=== PATIENT | male | born 2000 | race Caucasian/White ===

== ENCOUNTER 2019-02-26 13:25 | Emergency (ER) | payer MEDICAID, SELFPAY ==
[2019-02-26 13:26] VITALS: BP 144/85; PULSE 94; RESP 16; TEMP 36.7; O2SAT 100; BMI 24.2
--- NOTE | 2019-02-26 13:40 | ED.VIS.GEN ---
History of Present Illness Chief Complaint: Complaint Informant: Patient Onset: Yesterday Current Severity: Mild Narrative: The patient complains of discolored concentrated looking urine since yesterday x1 or 2 no blood no pain no dysuria no penile discharge, no nausea or vomiting, he is eating and drinking well he does indicate a few days ago he picked up a quite a few logs but did not injure himself anyway, he has had no fever no cough no abdominal pain, he noted to his mother the discolored urine and she suggested he come to the emergency room to be evaluated he has no past history is on no medications Past Medical History - Allergies and Home Meds Allergies/Adverse Reactions: Allergies No Known Allergies Allergy (Verified 02/26/19 13:27) Primary Care Physician: NOT,DEFINED [NON-STAFF] - Past Medical History: None Review of Systems General: Denies: Chills, Fever, Sweats Eyes: Denies: Visual changes - bilaterally, Diplopia ENT: Denies: Rhinorrhea, Sore throat Cardiovascular: Denies: Chest pain, Palpitations Respiratory: Denies: Dyspnea, Cough, Dyspnea on exertion Gastrointestinal: Denies: Abdominal pain, Nausea, Vomiting, Diarrhea, Melena, Hematochezia Genitourinary: Reports: - - Discolored urine no other complaints. Denies: Dysuria, Hematuria, Frequency Musculoskeletal: Denies: Back pain, Extremity Pain Skin: Denies: Rash, Wounds Neurological: Denies: Headache, Weakness, Numbness Physical Exam Vital Signs/Narrative: Vital Signs Temp Pulse Resp BP Pulse Ox 02/26/19 13:26 98.0 F 94 16 144/85 H 100 General: Well nourished, Well developed, No Acute Distress Head: Normocephalic, Atraumatic Eyes: Perrl, EOMI ENT: Moist mucous membranes, No rhinorrhea Neck: Supple, Nontender Cardiovascular: Regular rate, Regular rhythm, No murmurs Respiratory: No distress, CTA bilaterally, Chest nontender Abdomen: Soft, Nontender, Nondistended, Normal bowel sounds : - - Remarkable genitalia no pain no discharge Back: Nontender, Normal Inspection Extremities: Nontender, No edema Skin: Normal color, No rash Neurological: Alert, Oriented x3, Cranial nerves II-XII grossly intact, Normal Strength, Normal Sensation Psychological: Normal affect, Normal Mood Diagnostic/Tx/Re-eval - Medical Decision Making he has no physical findings indicates no fever no cough he is eating and drinking well bowel and bladder habits are normal except he has a discolored urine he is had no trauma only thing really knew was he was called picking up these logs as he did not injure himself he has no pain or symptoms of any kind Patient's UA is negative for all, see that report clear urine, we did send as a precaution GC chlamydia chlamydia PCR urine he indicates he has no history of STD no dysuria these results are not available he will be discharged home to follow-up with outpatient providers and have these other urine tests checked by those outpatient providers, he is comfortable with this plan Stable home Final impression Discolored urine by history etiology unclear ED Disposition - Plan for ED Patient: Diagnosis: Reports of discolored urine Instructions: URETHRITIS, Male (Infec vs Inflam), Adult Referrals: NOT,DEFINED [NON-STAFF] - Cande Patel [NON-STAFF] - Additional Instructions: Your urine test was unremarkable, additional urine cultures were sent follow-up with your outpatient providers to have those checked
[2019-02-26 14:27] LABS: Bacteria 0 SEEN /hpf (None Seen); Mucous, Urine 0 SEEN /hpf (<or=2+); Red Blood Cells-Urine 0 SEEN /hpf (0-5); Squamous Epithelial Cells - UA 0 SEEN /hpf (0-5); White Blood Cells 0 SEEN /hpf (0-5)
[2019-02-26 14:28] LABS: Color, Urine Yellow (Yellow); Glucose, Dipstick Normal (Normal); Ketone-Dipstick Negative (Negative); Leukocyte Esterase-Dipstick Negative /ul (Negative); Nitrite-Dipstick Negative (Negative); Occult Blood-Urine Negative /ul (Negative); Protein-Dipstick Negative (Negative); Urine Bilirubin Dipstick Negative (Negative); Urine Clarity Clear (Clear); Urine Urobilinogen Normal (Normal)
[2019-02-26 15:14] VITALS: BP 137/86; PULSE 85; RESP 17; O2SAT 97
== END 2019-02-26 15:15 | disposition home or self-care (01) ==
LOC: ED 13:54
PROVIDERS: Emergency Provider Emergency Medicine
DX: R82.998 Other abnormal findings in urine (principal)
CPT/HCPCS: 81001; 87491; 87591; 99282

== ENCOUNTER 2019-10-27 11:32 | Emergency (ER) | payer MEDICAID, SELFPAY ==
[2019-10-27 11:32] VITALS: BP 136/90; PULSE 120; RESP 16; TEMP 36.4; O2SAT 96; BMI 24.3
--- NOTE | 2019-10-27 12:18 | ED.VIS.GEN ---
History of Present Illness Chief Complaint: Nausea/Vomiting/Diarrhea Informant: Patient Narrative: Patient presents the emergency room stating he has had approximately 3 to 4 days of diarrhea. He had an episode of vomiting this morning. He also reports a subjective fever last night. He states he took Motrin about 16 hours ago. He was afebrile here in the department. No rashes. Denies any bad food exposure. No cough no shortness of breath no runny nose no sore throat no earache. Past Medical History - Allergies and Home Meds Allergies/Adverse Reactions: Allergies No Known Allergies Allergy (Verified 10/27/19 11:35) Primary Care Physician: Care Physician,No Primary [Primary Care Provider] - Smoking Status: Unknown if ever smoked Review of Systems General: Reports: Chills, Fever, Subjective. Denies: Sweats Eyes: Denies: Visual changes - bilaterally, Diplopia ENT: Denies: Rhinorrhea, Sore throat Cardiovascular: Denies: Chest pain, Palpitations Respiratory: Denies: Dyspnea, Cough, Dyspnea on exertion Gastrointestinal: Reports: Nausea, Vomiting, Diarrhea. Denies: Abdominal pain, Melena, Hematochezia Genitourinary: Denies: Dysuria, Hematuria, Frequency Musculoskeletal: Denies: Back pain, Extremity Pain Skin: Denies: Rash, Wounds Neurological: Denies: Headache, Weakness, Numbness Physical Exam Vital Signs/Narrative: Vital Signs Temp Pulse Resp BP Pulse Ox 10/27/19 11:32 97.5 F L 120 H 16 136/90 H 96 Inital Vital Signs reviewed: Yes General: Well nourished, Well developed, No Acute Distress Head: Normocephalic, Atraumatic Eyes: Perrl, EOMI ENT: Moist mucous membranes, No rhinorrhea Neck: Supple, Nontender Cardiovascular: Regular rate, Regular rhythm, No murmurs Respiratory: No distress, CTA bilaterally, Chest nontender Abdomen: Soft, Nontender, Nondistended, Normal bowel sounds Back: Nontender, Normal Inspection Extremities: Nontender, No edema Skin: Normal color, No rash Neurological: Alert, Oriented x3, Cranial nerves II-XII grossly intact, Normal Strength, Normal Sensation Psychological: Normal affect, Normal Mood Diagnostic/Tx/Re-eval - Medical Decision Making Patient is very concerned about COVID. We can swab him for COVID given his fever and diarrhea. He will need to go to commercial lab. I will write for Zofran would recommend Imodium. ED Disposition - Plan for ED Patient: Disposition: Home or Assisted Living Diagnosis: Gastroenteritis Instructions: ED Viral Gastroenteritis Prescriptions: Ondansetron [Zofran Odt] 4 mg PO Q8H PRN PRN #10 tab PRN Reason: Nausea Prescription Printed Referrals: Coretta Yanez MD [STAFF PHYSICIAN] - (As needed for primary care) Additional Instructions: I would recommend Imodium as needed for diarrhea. Zofran for nausea vomiting. Follow-up with primary care if not improving
[2019-10-27 13:05] VITALS: PULSE 80; RESP 16; O2SAT 99
[2019-10-27 13:07] VITALS: PULSE 80; RESP 14; O2SAT 99
== END 2019-10-27 13:05 | disposition home or self-care (01) ==
LOC: ED 12:27
PROVIDERS: Emergency Provider Emergency Medicine
DX: K52.9 Noninfective gastroenteritis and colitis, unspecified (principal); Z79.899 Other long term (current) drug therapy
CPT/HCPCS: 87635; 99282; U0003

== ENCOUNTER 2021-02-26 21:30 | Emergency (ER) | payer MEDICAID, SELFPAY ==
[2021-02-26 21:33] VITALS: BP 134/90; PULSE 107; RESP 16; TEMP 36.6; O2SAT 100; BMI 15.7
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
[2021-02-26] MEDS: Diphth,Pertuss(Acell),Tet Vac 0.5 ML Vial IM (22:06)
[2021-02-26] MEDS: LORazepam 2 MG/ML Syringe IM (22:06)
[2021-02-26] MEDS: Lidocaine 1% (20 ml mdv) 20 ML Vial INFILT (22:07)
[2021-02-26 22:19] LABS: Absolute Lymphocyte Count 2.78 X10^3/uL (0.83-4.51); Absolute Neutrophil Count 7.4 X10^3/uL (2.0-7.7); Basophil% 0.9 % (0-1); Eosinophil# 0.22 X10^3/uL; Eosinophils% 1.9 % (0-5); Hematocrit 43.5 % (40-54); Hemoglobin 15.3 g/dL (13.0-16.5); Lymphocyte # 2.78 X10^3/ul (0.83-4.51); Lymphocyte % 24.3 % (19-41); Mean Corp Hgb Conc 35.2 g/dL (32-36); Mean Corpuscular Hgb 30.8 pg (27.0-32.0); Mean Corpuscular Volume 87.7 fL (80-94); Monocyte# 0.87 X10^3/uL; Monocyte% 7.6 % (0-10); NRBC Flagged by Analyzer 0 % (0-5); Neutrophil % 64.9 % (47-70); Platelet Count 229 K/mm3 (150-450); RBC Distribution Width CV 11.9 % (11.6-14.6); Red Blood Count 4.96 M/mm3 (4.6-6.2); White Blood Count 11.4 K/mm3 (4.4-11.0)
[2021-02-26 22:34] LABS: Anion Gap 5 (5-15); BUN 19 mg/dL (7-18); BUN/Creat Ratio 16.7 RATIO (10-20); Calcium,Total 9.8 mg/dL (8.5-10.1); Chloride 103 mmol/L (98-107); Creatinine, Serum 1.14 mg/dL (0.70-1.30); EST Glomerular Filtration Rate 85 mL/min (>60); Est Glom Filt Rate - Afr Amer 103 mL/min (>60); Estimated Creatinine Clearance 75.76 ml/min; Glucose 94 mg/dL (74-106); Potassium 3.9 mmol/L (3.5-5.1); Sodium Level 139 mmol/L (136-145)
[2021-02-26 22:47] LABS: Alcohol, Blood (Medical)-Serum < 3.0 mg/dL
[2021-02-26 23:57] VITALS: RESP 16
[2021-02-27] VITALS (14 sets, daily range): BP systolic 95–104; BP diastolic 50–91; PULSE 71–84; RESP 14–18; O2SAT 95–98
[2021-02-27 01:00] LABS: Amphetamine Urine VISTA POSITIVE (<1000 ng/mL); Barbiturate Urine VISTA NEGATIVE (< 200 ng/mL); Benzodiazepine Urine VISTA NEGATIVE (< 200 ng/mL); Cocaine Urine VISTA NEGATIVE (< 300 ng/mL); Ecstacy Urine VISTA POSITIVE (< 500 ng/mL); Methadone Urine VISTA NEGATIVE (< 300 ng/mL); PCP Urine VISTA NEGATIVE (< 25 ng/mL); THC Urine VISTA POSITIVE (< 50 ng/mL); Vista UDS pH Range 4
--- NOTE | 2021-02-27 07:16 | NURSING ---
CALLED [facility]. TALKED TO IGGY ANSWERING SERVICE
--- NOTE | 2021-02-27 09:07 | NURSING ---
CALLED [facility], TALKED TO SRUTHI. SHE NEEDS CHART FAXED. WILL DO THIS
--- NOTE | 2021-02-27 09:13 | NURSING ---
FAX SENT TO CRISIS
--- NOTE | 2021-02-27 09:54 | NURSING ---
[facility] HERE FOR PATIENT
--- NOTE | 2021-02-27 10:30 | CM.ED ---
SOCIAL WORK Met with Crisis. Per wafer polishing worker, Maribell attempted to meet with patient. Patient unable to complete assessment at this time. Maribell reports patient is coming off meth. This worker to follow up once patient able to participate with assessment. Nursing updated. Lelo London, THIRD STEEL POURER, ANALYTICS ARCHITECT
--- NOTE | 2021-02-27 12:54 | EKG12_ITS ---
Test Reason : MENTAL STATUS CHANGE Blood Pressure : / mmHG Vent. Rate : 068 BPM Atrial Rate : 068 BPM P-R Int : 114 ms QRS Dur : 094 ms QT Int : 398 ms P-R-T Axes : 072 077 068 degrees QTc Int : 423 ms Normal sinus rhythm with sinus arrhythmia Normal ECG Confirmed by JANAK SANCHEZ, ISHAN ([id number]), visual effects editor LAINE HENAO ([id number]) on 02/28/2021 9:23:58 AM Referred By: PHILIPPE Confirmed By:ISHAN BRICENO MD
--- NOTE | 2021-02-27 13:08 | NURSING ---
NO OLD EKGS
[2021-02-27 13:17] LABS: CPK Total, Creatine Kinase 439 U/L (39-308)
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
--- NOTE | 2021-02-27 13:34 | CM.ED ---
SOCIAL WORK Call to [facility], no intake available at this time. Call to [facility], no dual dx beds available. Call to [facility]. Intake reports beds available. Referral faxed, pending review. Lelo London, CARDIO TECH, TEST BORE HELPER
--- NOTE | 2021-02-27 15:06 | CM.ED ---
SOCIAL WORK Call to [facility] to check on status of referral. Intake reports still under review at this time. Lelo London, SOFTWARE APPLICATIONS DEVELOPER, COPY MACHINE OPERATOR
--- NOTE | 2021-02-27 17:10 | CM.ED ---
SOCIAL WORK Patient accepted to [facility] by Dr. Ricketts to the Dual Dx Unit. Nurse to call report. [facility] to set up transport. Nursing updated and will update family. Lelo London MSW, TRANSLATOR AND INTERPRETER
--- NOTE | 2021-02-27 17:27 | NURSING ---
1719 CALLED [facility], ETA IS 20 MIN
--- NOTE | 2021-02-27 17:35 | ED.RN ---
MOTHER CALLED AND LEFT HER PHONE NUMBER FOR PT. THIS RN SPOKE WITH MOTHER OVER THE PHONE AND NOTIFIED HER THAT HE WAS BEING TRANSFERRED TO [facility]. SHE VERBALIZED UNDERSTANDING. PHONE NUMBER WAS GIVEN TO ED STATE ARCHIVIST TO PUT WITH HIS CHART OR TRANSFER
--- NOTE | 2021-02-27 17:42 | ED.RN ---
[facility] CALL[facility] INFORMED THAT TRANSPORT CREW WILL BE HER AROUND 2014
--- NOTE | 2021-02-27 18:00 | ED.RN ---
Updated [facility] on ETA of squad pickup ([id number]).
== END 2021-02-27 20:30 ==
LOC: ED 22:00
PROVIDERS: Emergency Medicine; Emergency Provider Emergency Medicine
DX: F25.9 Schizoaffective disorder, unspecified (principal); F31.9 Bipolar disorder, unspecified; S01.511A Laceration without foreign body of lip, initial encounter; Z23 Encounter for immunization; Y35.811A Legal intervention involving manhandling, law enforcement official injured, initial encounter; Y93.9 Activity, unspecified; Y92.9 Unspecified place or not applicable; Y99.9 Unspecified external cause status; Z20.822 Contact with and (suspected) exposure to COVID-19; F15.10 Other stimulant abuse, uncomplicated; F17.210 Nicotine dependence, cigarettes, uncomplicated
CPT/HCPCS: 12011; 36415; 80048; 80307; 82077; 82550; 85025; 87426; 90715; 93005; 96372; 99285

== ENCOUNTER 2021-06-14 11:41 | Emergency (ER) | payer MEDICAID, SELFPAY ==
[2021-06-14 11:43] VITALS: BP 124/84; PULSE 119; RESP 18; TEMP 36.6; O2SAT 100; BMI 19.0
[2021-06-14 12:27] LABS: Absolute Lymphocyte Count 2.12 X10^3/uL (0.83-4.51); Absolute Neutrophil Count 4.7 X10^3/uL (2.0-7.7); Basophil# 0.07 X10^3/uL; Basophil% 0.9 % (0-1); Eosinophils% 3.8 % (0-5); Hematocrit 43.6 % (40-54); Hemoglobin 15.6 g/dL (13.0-16.5); Lymphocyte # 2.12 X10^3/ul (0.83-4.51); Lymphocyte % 27.1 % (19-41); Mean Corp Hgb Conc 35.8 g/dL (32-36); Mean Corpuscular Hgb 31.2 pg (27.0-32.0); Mean Corpuscular Volume 87.2 fL (80-94); Monocyte% 7.7 % (0-10); NRBC Flagged by Analyzer 0 % (0-5); Neutrophil # 4.68 X10^3/uL (2.7-7.7); Platelet Count 199 K/mm3 (150-450); RBC Distribution Width CV 11.6 % (11.6-14.6); White Blood Count 7.8 K/mm3 (4.4-11.0)
--- NOTE | 2021-06-14 12:28 | EX.ED.VIS.PS ---
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 History is still a bit difficult to obtain. He denies any medicines or history of medical problems. However, I later find out he has schizophrenia has at least 2 meds prescribed but not being taken and used to get an injectable monthly medicine to control this. He has not had any of these meds for a long time. He has had more bizarre behavior poor self-care and using drugs. It sounds like he uses mostly math. He has never injected. No indication of suicidal homicidal behavior but evidently he is living in squalid conditions is about to get evicted and has very poor self-care and has been going downhill so he is really not caring for himself. PFSH PFS Medical History Methamphetamine abuse Home Medications NK 02/26/21 [History Last Taken Unknown] NK 06/14/21 [History Last Taken Unknown] Allergy/AdvReac Type Severity Reaction Status Date / Time No Known Allergies Allergy Unverified 06/14/21 11:45 Surgical History no surgical history Social History Smoking Status: Unknown if ever smoked ROS ROS ED Constitutional Constitutional ED: Denies fever(s) Eyes Eyes: Denies change in vision ENT ENT ED: Denies rhinorrhea or sore throat Cardiovascular Cardiovascular: Denies chest pain or palpitations Respiratory/Chest Respiratory/Chest: Denies cough or dyspnea Gastrointestinal Gastrointestinal: Denies nausea or vomiting Genitourinary Genitourinary ED: Denies dysuria Musculoskeletal Musculoskeletal: Denies arthralgias or myalgias Integumentary Reports other Details: Chronic psoriasis rash Neurologic Neurologic: Denies headache(s) Psychiatric Psychiatric: Reports other Details: See history of present illness. Patient seems very distracted but denies hallucinations. ; Denies anxiety, depression, suicidal ideation or suicidal thoughts Endocrine Endocrinology: Denies polydipsia or polyuria Hematologic/Lymphatic Hematologic/Lymphatic: Denies easy bleeding or easy bruising Allergic/Immunologic Allergic/Immunologic ED: Denies mouth swelling or urticaria EXAM Physical Exam Const Vital Signs: 06/14/21 11:43 Temperature 98 F Temperature Source Temporal Pulse Rate 119 H Respiratory Rate 18 Blood Pressure 124/84 H Blood Pressure Mean 97 Pulse Ox 100 Oxygen Delivery Method Room Air Positive well nourished, well developed and unkempt General Appearance ED: unkempt, well developed and NAD HEENT normocephalic and atraumatic Eyes General Eye ED: Negative for pale conjunctiva or scleral icterus Neck no JVD Resp normal respiratory effort and clear to auscultation bilaterally Auscultation: Negative for rales, rhonchi or wheezes Cardio Rate: regular rate Rhythm: regular rhythm GI non-tender and non-distended Palpation: soft Back/Spine no CVA tenderness General Back: CVA tenderness Psych Psych Narrative: Patient is awake and alert. He is cooperative except he does seem otherwise preoccupied. I will oftentimes have to ask questions more than once before he answers. He has poor insight. Appearance: unkempt Skin Skin Narrative: Psoriatic changes on elbows. Lesions: no lesions MDM MDM MDM Narrative Medical decision making narrative: Blood work shows normal CBC, normal electrolytes, negative alcohol. Tox is positive for meth and cannabis. EKG is unremarkable. Covid is negative. Patient is medically cleared for psychiatric evaluation and admission if needed. Patient is pink slipped here. He is becoming nonfunctional. He has obvious stimulation from other source no one else recognizes. I suspect he is having hallucinations but cannot verify that. He is off of his medications. Those that know him state he is getting significantly worse. He is at risk for getting evicted shortly due to his behavior. Patient is being evaluated by social work who is working on arranging placement. Lab Data Attestation: I reviewed the patient's lab results. Labs: Laboratory Results - last 24 hr 06/14/21 06/14/21 06/14/21 12:20 12:20 12:20 WBC 7.8 RBC 5.00 Hgb 15.6 Hct 43.6 MCV 87.2 MCH 31.2 MCHC 35.8 RDW Std Deviation 37.0 RDW Coeff of Geremias 11.6 Plt Count 199 MPV 9.0 Immature Gran % (Auto) 0.500 Neut % (Auto) 60.0 Lymph % (Auto) 27.1 [place] % (Auto) 7.7 Eos % (Auto) 3.8 Baso % (Auto) 0.9 Absolute Neuts (auto) 4.7 Absolute Lymphs (auto) 2.12 Nucleated RBC % 0 Sodium 139 Potassium 3.7 Chloride 105 Carbon Dioxide 28.0 Anion Gap 6 BUN 15 Creatinine 0.80 Estim Creat Clear Calc 128.99 Est GFR (MDRD) Af Amer 154 Est GFR (MDRD) Non-Af 127 BUN/Creatinine Ratio 18.8 Glucose 87 Calcium 9.2 Urine Opiates Screen Urine Methadone Screen Ur Barbiturates Screen Ur Phencyclidine Scrn Ur Amphetamines Screen U Methamphetamin-MDMA U Benzodiazepines Scrn Urine Cocaine Screen U Cannabinoids Screen Ur Drug Screen Comment Ethyl Alcohol < 3.0 06/14/21 12:37 WBC RBC Hgb Hct MCV MCH MCHC RDW Std Deviation RDW Coeff of Geremias Plt Count MPV Immature Gran % (Auto) Neut % (Auto) Lymph % (Auto) [place] % (Auto) Eos % (Auto) Baso % (Auto) Absolute Neuts (auto) Absolute Lymphs (auto) Nucleated RBC % Sodium Potassium Chloride Carbon Dioxide Anion Gap BUN Creatinine Estim Creat Clear Calc Est GFR (MDRD) Af Amer Est GFR (MDRD) Non-Af BUN/Creatinine Ratio Glucose Calcium Urine Opiates Screen NEGATIVE Urine Methadone Screen NEGATIVE Ur Barbiturates Screen NEGATIVE Ur Phencyclidine Scrn NEGATIVE Ur Amphetamines Screen POSITIVE H U Methamphetamin-MDMA NEGATIVE U Benzodiazepines Scrn NEGATIVE Urine Cocaine Screen NEGATIVE U Cannabinoids Screen POSITIVE H Ur Drug Screen Comment Ethyl Alcohol EKG Initial EKG: Comments: EKG done as part of medical clearance and read by me shows a sinus rhythm with overall rate of 97. Slight right atrial enlargement. No acute ST elevation or depression. [place] interval, QRS duration and QTc normal. Discharge Plan Triage Chief Complaint: Mental Health ED Provider: Scot Valencia Dx/Rx/DC Orders Clinical Impression: Acute exacerbation of chronic schizophrenia Prescriptions: No Action NK RF: 0 NK RF: 0 Primary Care Provider: Care Physician,No Primary Referrals: Care Physician,No Primary [Primary Care Provider] - Disposition Disposition: Psychiatric Hospital or Unit
[2021-06-14 12:39] LABS: Anion Gap 6 (5-15); BUN 15 mg/dL (7-18); BUN/Creat Ratio 18.8 RATIO (10-20); Calcium,Total 9.2 mg/dL (8.5-10.1); Chloride 105 mmol/L (98-107); EST Glomerular Filtration Rate 127 mL/min (>60); Est Glom Filt Rate - Afr Amer 154 mL/min (>60); Estimated Creatinine Clearance 128.99 ml/min; Glucose 87 mg/dL (74-106); Potassium 3.7 mmol/L (3.5-5.1); Sodium Level 139 mmol/L (136-145)
[2021-06-14 13:12] LABS: Alcohol, Blood (Medical)-Serum < 3.0 mg/dL
[2021-06-14 13:15] LABS: Amphetamine Urine VISTA POSITIVE (<1000 ng/mL); Barbiturate Urine VISTA NEGATIVE (< 200 ng/mL); Benzodiazepine Urine VISTA NEGATIVE (< 200 ng/mL); Cocaine Urine VISTA NEGATIVE (< 300 ng/mL); Ecstacy Urine VISTA NEGATIVE (< 500 ng/mL); Methadone Urine VISTA NEGATIVE (< 300 ng/mL); PCP Urine VISTA NEGATIVE (< 25 ng/mL); THC Urine VISTA POSITIVE (< 50 ng/mL); Vista UDS pH Range 6
--- NOTE | 2021-06-14 13:24 | CM.ED ---
Social Work Reason for Consult: Mental Health Referral source: Dr. Valencia Chief Complaint: Patient present to the emergency room with bizarre behavior. Patient friend, Maria Dolores with patient and expressing concerns of patient being able to care for self. Marital/Social History: Single. Living Situation: Lives in a motel room that is unkept per Maria Dolores. Maria Dolores reports that patient lives with a brother and patient mother. Patient mother is currently in half-way for the past 24 days per patient. Support/Resources: Active with the counseling center of [facility] but has not been following up with treatment/care. Patient reports limited community support. History: Denies Education/Employment History: Did not assess Mental Health treatment/History: Schizophrenia and Bi-polar. Patient denies any current medication to manage mental health. Patient reports it has been a minute since patient last took medication to manage mental health. Patient with history of inpatient psychiatric placement in 2020. Triggers/Stressors: Just not doing great per patient. Coping Skills: Unable to assess. Abuse Issues: Denies Substance Abuse Hx: Reports history of Marijuana use with last use being three days. Patient denies any other substance abuse/use. Patient tox screen is positive for amphetamines. Risk to self/others: Patient denies suicidal thoughts, plans, intents. Patient denies homicidal thoughts, plans, intents. Patient denies self harming behaviors or violence against others. Patient denies any current legal issues. Mental status exam: A&Ox3, at times. Throughout assessment patient would begin to speak to as if there was someone else in the room patient was speaking to. Appearance/General Behavior: Unkept. Unclean. Mood/Affect: Labile. Patient crying when this sr. social media & mobile manager entered the room. Patient would then smile in a bizarre manner and speak to what appears to be an external stimulation. Communication Pattern: Responds to majority of questions when not externally stimulated. When patient is externally stimulated, patient does not respond to questions. Thought Process: Patient denies visual or auditory hallucinations or paranoia, BUT patient is visibly externally stimulated multiple times throughout conversation patient would begin mumbling and appear to be speaking with someone that is not in the room. Judgement: Poor. Assessment: Met with patient and patient friend, Maria Dolores in room. Introduced self and sr. social media & mobile manager role. At first, patient was reluctant to speak with this sr. social media & mobile manager. With guidance from Maria Dolores patient willing to speak with this sr. social media & mobile manager. Patient provided verbal permission for this sr. social media & mobile manager to speak openly with Maria Dolores in the room. Patient also provided verbal permission for this sr. social media & mobile manager to contact Maria Dolores with updated on plan from emergency room. Patient difficult to understand at times throughout assessment. Maria Dolores reports that patient has not been caring for self and has been having episodes. Maria Dolores reports to be concerned for patient ability to care for self. Patient does appear in a bizarre manner at time and labile mood/affect. Patient smiling and laughing at inappropriate times and does not respond with appropriate affect to match the topic or the question that is being asked. Maria Dolores reports that patient was found standing against a heating the other day and patient sweatshirt started to melt before someone else identified that patient needed to move away from the heater. Patient has not been eating per patient, I just don't think about it. Patient reports to not be sleeping and is unable to identify a reason for why patient is not sleeping. Patient was reported to have lost his wallet per Maria Dolores and to have had money last night. Maria Dolores concerned about possible substance influence today but also reports that patient has not been doing well over the past few days. Active support provided. Collaborating with Dr. Valencia, plan is for patient to be pink slipped due to not being able to care for self and serving a risk to harming self as patient mental health is not stable currently. Patient responding to external stimulation with bizarre behavior. PLAN: Inpatient psychiatric facility. Will continue to follow. Jess GASPAR, JUN
--- NOTE | 2021-06-14 13:36 | ED.RN ---
PT BECAME AGITATED WHEN FRIEND STAS LEFT, STATING HE WANTS TO LEAVE WELL. PT PLACED IN GOWN, ALL CLOTHING REMOVED FROM ROOM. PT REDIRECTED BACK TO BED, FOOD ORDERED FROM DIETARY. PT RESTING IN BED AT THIS TIME, APPEARS TO BE MUMBLING NON-SENSICAL SPEECH.
--- NOTE | 2021-06-14 13:49 | EKG12_ITS ---
Test Reason : MENTAL HEALTH Blood Pressure : / mmHG Vent. Rate : 097 BPM Atrial Rate : 097 BPM P-R Int : 136 ms QRS Dur : 098 ms QT Int : 350 ms P-R-T Axes : 073 073 067 degrees QTc Int : 444 ms Normal sinus rhythm Right atrial enlargement Borderline ECG Confirmed by DELORES SANCHEZ, WENDY ([id number]), commissioning editor LAINE HENAO ([id number]) on 06/15/2021 11:21:52 AM Referred By: PL Confirmed By:DEJON ESTRELLA MD
--- NOTE | 2021-06-14 13:59 | CM.ED ---
Social Work Telephone call to [facility], Intake. This social and human services assistant confirms that [facility] accepts patient insurance and patients positive for meth. Intake also confirms to have an open male bed. Clinical information faxed. Pending approval. Will continue to follow. Jess GASPAR, JUN
--- NOTE | 2021-06-14 14:40 | ED.RN ---
PT RESTING IN BED WITH EYES CLOSED, REFUSES TO EAT.
--- NOTE | 2021-06-14 15:08 | CM.ED ---
Social Work Telephone call to [facility], Intake. No answer. No voicemail. Will continue to follow. Jess GASPAR, SUDHAS
--- NOTE | 2021-06-14 15:39 | CM.ED ---
Social Work Telephone call to Cheryl [facility]. Referral has been received and is waiting to be reviewed. Will continue to follow. Jess GASPAR, JUN
--- NOTE | 2021-06-14 16:28 | CM.ED ---
Social Work Telephone call to Cheryl Claudio. Referral is currently being reviewed. it is a potential. Will continue to follow. Jess GASPAR, JUN
[2021-06-14 17:00] VITALS: PULSE 80; RESP 14; O2SAT 100
--- NOTE | 2021-06-14 17:37 | CM.ED ---
Social Work Telephone call to [facility]. Referral made. This social media director confirmed open beds and that [facility] accepts patient insurance. Referral made to [facility] due to delayed response from [place] [facility]. Patient case currently pending [facility] and [place] [facility]. Will continue to follow. Jess GASPAR, JUN
--- NOTE | 2021-06-14 18:27 | CM.ED ---
Social Work Telephone call to Anoop Rousseau. Patient has been accepted. Anoop request for [employer] slip to be faxed and then will call back with accepting information. [employer] Sl[employer] faxed. Jess Craig MSW, Padmaja
--- NOTE | 2021-06-14 18:42 | CM.ED ---
Social Work Attempted to contact [facility] to cancel referral, no answer from admissions. Jess Craig MSW, NICKIE-S
--- NOTE | 2021-06-14 19:41 | CM.ED ---
Social Work Telephone call from Anoop Rousseau. Patient to be admitted to the 1500 unit. Nursing to call report to [phone]. Patient admitted by Dr. Hoang. Medical team updated. Patient currently sleeping, nursing to update patient. Telephone call to Maria Dolores Whitten updated on patient disposition. Transportation to be set up by the police department secretary. PLAN: Boni GASPAR, NICKIE-S
[2021-06-14 20:22] VITALS: BP 126/80; PULSE 80; RESP 16; TEMP 36.9; O2SAT 100
[2021-06-14 20:24] VITALS: BP 126/80; PULSE 80; RESP 16; TEMP 36.9; O2SAT 100
== END 2021-06-14 20:54 ==
PROVIDERS: Emergency Medicine; Emergency Provider Emergency Medicine; Visit Provider Emergency Medicine
DX: F20.9 Schizophrenia, unspecified (principal); Z20.822 Contact with and (suspected) exposure to COVID-19
CPT/HCPCS: 80048; 80307; 82077; 85025; 87426; 93005; 99285

== ENCOUNTER 2022-08-27 13:56 | Emergency (ER) | payer MEDICAID, SELFPAY ==
[2022-08-27 13:57] VITALS: BP 129/69; PULSE 141; RESP 26; TEMP 36.3; O2SAT 97; BMI 22.4
--- NOTE | 2022-08-27 14:10 | EDS_ITS ---
HPI <Dr. Paolo Nguyen MD - Last Filed: 09/03/22 13:50> HPI - Psych History of Present Illness Chief Complaint: Mental Health Detail of Chief Complaint: Patient has not taken his psychotic meds for past 4 days. Onset/Context/Timing Onset: Days Context: Sudden Onset Conflict: - (Incarcerated for probation violation) Timing: Continuous and Waxes and wanes Current Severity: Mild Maximum Severity: Moderate Worsened by: - (Unable to determine) Relieved by: Nothing Associated Symptoms Associated Symptoms - Psych: Positive for Change in Eating, Change in sleeping and Easily distracted; Negative for Depressed, Decreased Interest, Guilt, Decreased Concentration, Hopelessness, Suicidal Thoughts, Grandiosity, Flight of Ideas, Increased activity, Pressured Speech, Agitated, Angry, Hostile, Threatening, Confusion, Paranoia or Auditory Hallucinations Specific plan (suicidal thought): Not applicable Narrative Narrative: Patient is a 22-year-old male with history of schizoaffective disorder who is released from senior care. He is on no meds. He is presently homeless. He was brought to the emergency department by a friend because of abnormal behavior, lack of sleep. He does admit to schizoaffective disorder. He denies suicidal homicidal ideation. Patient is easily distracted. At times is inappropriate. Patient has no complaints. Friend who accompanied him to the emerged part is happened once before. He got better when she was started on his meds. Prior similar symptoms: Yes Recent Illness/Hospitalization: No PFSH <Dr. Paolo Nguyen MD - Last Filed: 09/03/22 13:50> PFSH Medical History Bipolar 1 disorder Methamphetamine abuse Schizo-affective schizophrenia Home Medications aripiprazole 10 mg tablet (Abilify) 10 mg PO QHS #30 tabs 08/27/22 [Rx Last Taken Unknown] risperidone 0.5 mg tablet 0.5 mg PO BID #60 tabs 08/27/22 [Rx Last Taken Unknown] trazodone 50 mg tablet 50 mg PO QHS #30 tabs 08/27/22 [Rx Last Taken Unknown] Allergy/AdvReac Type Severity Reaction Status Date / Time No Known Allergies Allergy Unverified 08/27/22 14:01 Surgical History no surgical history no surgical history Social History (Updated 08/27/22 @ 14:[address] Paolo Nguyen MD) household members: none housing: homeless Smoking Status: Current every day smoker substance use type: marijuana ROS <Dr. Paolo Nguyen MD - Last Filed: 09/03/22 13:50> ROS ED Constitutional Constitutional ED: Denies chills, fever(s), subjective, sweats or weight loss Eyes Eyes: Denies blurry vision or change in vision ENT ENT ED: Denies ear pain, rhinorrhea or sore throat Cardiovascular Cardiovascular: Denies chest pain or palpitations Respiratory/Chest Respiratory/Chest: Denies cough, dyspnea or dyspnea on exertion Gastrointestinal Gastrointestinal: Denies constipation, nausea or vomiting Integumentary Denies rash Neurologic Neurologic: Denies headache(s) or paresthesias Psychiatric Psychiatric: Denies anxiety, depression, suicidal ideation or suicidal thoughts Hematologic/Lymphatic Hematologic/Lymphatic: Denies easy bleeding or easy bruising EXAM <Dr. Paolo Nguyen MD - Last Filed: 09/03/22 13:50> Physical Exam Const Vital Signs: 08/27/22 13:57 08/27/22 15:39 Temperature 97.3 F L Temperature Source Temporal Pulse Rate 141 H 98 Respiratory Rate 26 H Blood Pressure 129/69 H Blood Pressure Mean 89 Pulse Ox 97 Oxygen Delivery Method Room Air Positive well nourished and well developed Constitutional Narrative: Patient is somewhat inappropriate at times towards his friend who is trying to be helpful. General Appearance ED: well developed and NAD; Negative for pallor HEENT HEENT Narrative: Ears normal. Mucosa moist. normocephalic and atraumatic Eyes PERRL and EOMs intact bilaterally General Eye ED: Negative for pale conjunctiva or scleral icterus Neck no lymphadenopathy, supple and no JVD Resp normal respiratory effort and clear to auscultation bilaterally Cardio S1 normal heart sound, S2 normal heart sound and no murmurs Rate: regular rate Rhythm: regular rhythm Extremity normal to inspection Extremity Narrative: There is no cyanosis or clubbing. General Extremety ED: Negative for edema or tenderness General Extremity: Negative for edema Neuro oriented x3, CN's II-XII intact bilaterally and no sensory deficits noted [place] Coma Scale: document GCS findings Spontaneous Obeys Commands Oriented 15 Sensorium / Orientation: alert Psych cooperative, denies hallucinations, denies homicidal ideation and denies suicidal ideation Appearance: grossly normal Attitude: engaged and bizarre Activity / Motor Behavior: appropriate eye contact, fidgetting and disorganized Speech: normal speech Mood & Affect: labile affect; Negative for sad, tearful, fearful, hostile affect, constricted affect or blunted affect Thought Process: disorganized Thought Content: No suicidality, No homicidality, No phobia(s), No delusion(s), No hallucination(s), No derealization, No depersonalization and No compulsion(s) Attention / Concentration: attention grossly intact and concentration grossly intact Insight: fair Judgement: fair Skin Skin Narrative: No dermatologic lesions noted. General Skin Exam: Negative for jaundice or pallor Lesions: no lesions Rashes: no rashes <Jimmy Llamas MD - Last Filed: 08/28/22 07:09> Physical Exam Const Vital Signs: 08/27/22 13:57 08/27/22 15:39 Temperature 97.3 F L Temperature Source Temporal Pulse Rate 141 H 98 Respiratory Rate 26 H Blood Pressure 129/69 H Blood Pressure Mean 89 Pulse Ox 97 Oxygen Delivery Method Room Air Neuro [place] Coma Scale: document GCS findings 15 MDM <Dr. Paolo Nguyen MD - Last Filed: 09/03/22 13:50> [facility] Narrative Medical decision making narrative: Placed on monitor determine patient's heart rate and rhythm. Patient will receive dose of Abilify, was very drowsy and trazodone. Monitor reveals a heart rate of 119. Friend informed me that he smoked methamphetamine. This would explain his tachycardia and contribute to his bizarre behavior. Will treat with Valium. Rhythm Strip Rhythm Strip: Sinus Tach Rate: 119 Ectopy: None <Jimmy Llamas MD - Last Filed: 08/28/22 07:09> [facility] Treatment and Re-Evaluation Narrative: Dr. Llamas: Chart opened on error. I did not see or evaluate this patient. Discharge Plan Triage Chief Complaint: Mental Health ED Provider: Paolo Nguyen Dx/Rx/DC Orders Clinical Impression: Schizoaffective disorder, chronic condition, Methamphetamine abuse, Sinus tachycardia, Psychosis Instructions: ED Psychosis Prescriptions: New trazodone 50 mg tablet 50 mg PO QHS Qty: 30 0RF risperidone 0.5 mg tablet 0.5 mg PO BID Qty: 60 0RF aripiprazole [Abilify] 10 mg tablet 10 mg PO QHS Qty: 30 0RF Primary Care Provider: Care Physician,No Primary Referrals: Counseling,Center [Group of Physicians] - As soon as possible Care Physician,No Primary [Primary Care Provider] - [facility] [Non-Staff] - As soon as possible Disposition Disposition: Home, Self Care Discharge Date/Time: 08/27/22 17:12
[2022-08-27] MEDS: traZODone 50 MG Tablet PO (14:20)
[2022-08-27] MEDS: RisperiDONE 0.5 MG Tablet PO (14:20)
[2022-08-27] MEDS: ARIPiprazole 10 MG Tablet PO (14:20)
[2022-08-27] MEDS: diazePAM 5 MG Tablet PO (14:45)
[2022-08-27 15:39] VITALS: PULSE 98
--- NOTE | 2022-08-27 17:08 | CM.ED ---
Social Work Reason for referral: Homelessness SW spoke with nurse and physician which reported concerns of homelessness, being off psychiatric medication, and substance abuse. SW attempted to engage patient but he was sleeping. Pt woke up, and mumbled and then went back to sleep. Friend, Maria Dolores Amberly, present in room and provided information on patient status. Friend reports pt had not slept in several days since being released from intermediate and reportedly used meth yesterday. Friend reports pt is homeless but does have disability income and she has been trying to help him find housing. Pt has been staying with her until her children return on Saturday. Friend reports pt was working with someone at the intermediate named Eduardo. She reports that he has an appt. at the Counseling center Saturday the at 2pm and asked if Eduardo could meet with pt at this appt. Friend reports he struggles primarily with mental illness but drugs are to self-medicate. Resources given for homelessness/housing, counseling, and substance use treatment. VM left for Eduardo Leyva at the [facility] with Maria Dolores's phone number due to patient being without a phone. Pam Rolle BOX SORTER, CLOCK MAKER
== END 2022-08-27 17:12 | disposition home or self-care (01) ==
PROVIDERS: Emergency Provider Emergency Medicine; Visit Provider Emergency Medicine
DX: F25.9 Schizoaffective disorder, unspecified (principal); F15.10 Other stimulant abuse, uncomplicated; F17.200 Nicotine dependence, unspecified, uncomplicated; Z59.00 Homelessness unspecified; Z91.148 Patient's other noncompliance with medication regimen for other reason
CPT/HCPCS: 99284

== ENCOUNTER 2023-02-06 19:42 | Emergency (ER) | payer MEDICAID, SELFPAY ==
[2023-02-06 19:43] VITALS: BP 140/78; PULSE 115; RESP 24; TEMP 37; O2SAT 96; BMI 20.4
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
--- NOTE | 2023-02-06 20:08 | ED.RN ---
DR LINDSEY PINK SLIPPING PATIENT. PT DENIES BEING SI, NO SITTER NEEDED PER DR LINDSEY. PT IS A FLIGHT RISK, PATIENT IN ROOM 4 WITH CAMERA ON AND PD STANDING OUTSIDE THE ROOM AT THIS TIME.
[2023-02-06 20:12] LABS: Absolute Lymphocyte Count 2.63 X10^3/uL (0.83-4.51); Absolute Neutrophil Count 5.4 X10^3/uL (2.0-7.7); Basophil# 0.12 X10^3/uL; Basophil% 1.3 % (0-1); Eosinophil# 0.09 X10^3/uL; Hemoglobin 14.7 g/dL (13.0-16.5); Lymphocyte # 2.63 X10^3/ul (0.83-4.51); Lymphocyte % 29.6 % (19-41); Mean Corpuscular Hgb 30.9 pg (27.0-32.0); Mean Corpuscular Volume 88.4 fL (80-94); Mean Platelet Vol. 9.4 fl (6.2-12.0); Monocyte# 0.65 X10^3/uL; Monocyte% 7.3 % (0-10); NRBC Flagged by Analyzer 0 % (0-5); Neutrophil # 5.39 X10^3/uL (2.7-7.7); Neutrophil % 60.6 % (47-70); Platelet Count 241 K/mm3 (150-450); RBC Distribution Width CV 11.5 % (11.6-14.6); RBC Distribution Width SD 36.8 fl (35.1-43.9); Red Blood Count 4.75 M/mm3 (4.6-6.2); White Blood Count 8.9 K/mm3 (4.4-11.0)
[2023-02-06 20:36] LABS: Alcohol, Blood (Medical)-Serum < 3.0 mg/dL
[2023-02-06 20:37] LABS: Anion Gap 8 (5-15); BUN 21 mg/dL (7-18); BUN/Creat Ratio 21.1 RATIO (10-20); Calcium,Total 9.3 mg/dL (8.5-10.1); Chloride 106 mmol/L (98-107); EST Glomerular Filtration Rate 98 mL/min (>60); Est Glom Filt Rate - Afr Amer 118 mL/min (>60); Estimated Creatinine Clearance 109.88 ml/min; Glucose 88 mg/dL (74-106); Potassium 3.7 mmol/L (3.5-5.1); Sodium Level 138 mmol/L (136-145)
[2023-02-06 20:58] LABS: Amphetamine Urine VISTA POSITIVE (<1000 ng/mL); Barbiturate Urine VISTA NEGATIVE (< 200 ng/mL); Benzodiazepine Urine VISTA NEGATIVE (< 200 ng/mL); Cocaine Urine VISTA NEGATIVE (< 300 ng/mL); Ecstacy Urine VISTA POSITIVE (< 500 ng/mL); Methadone Urine VISTA NEGATIVE (< 300 ng/mL); PCP Urine VISTA NEGATIVE (< 25 ng/mL); THC Urine VISTA POSITIVE (< 50 ng/mL); Vista UDS pH Range 5
--- NOTE | 2023-02-06 21:09 | ED.RN ---
CRISIS CALLED AND AWARE PT NEEDS ASSESSED. ECHART, LAB/UA RESULTS, FACESHEET FAXED OVER.
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
[2023-02-06] MEDS: Ziprasidone IM 20 MG/ML VIAL IM (22:17)
--- NOTE | 2023-02-06 23:02 | ED.RN ---
CRISIS CAME TO ASSESS, SW SAID TO CONTACT CC AFTER MIDNIGHT TO BE EVALUATED BY DIFFERENT SW.
--- NOTE | 2023-02-06 23:03 | ED.RN ---
Crisis arrives to ED. He states he cannot assess patient because he is medicated. He states we need to call crisis when patient wakes up.
[2023-02-07] VITALS (10 sets, daily range): BP systolic 105; BP diastolic 50; PULSE 75; RESP 14–24; O2SAT 98
--- NOTE | 2023-02-07 04:54 | ED.RN ---
Lakia with crisis called, pt pending at [facility].
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
--- NOTE | 2023-02-07 09:41 | NURSING ---
[facility] UN[address] DYKES NURSE TO NURSE: [phone]
[2023-02-07] MEDS: Ziprasidone IM 20 MG/ML VIAL IM (09:43)
== END 2023-02-07 13:57 ==
PROVIDERS: Emergency Provider Emergency Medicine; Visit Provider Emergency Medicine
DX: F29 Unspecified psychosis not due to a substance or known physiological condition (principal); F20.9 Schizophrenia, unspecified; Z59.00 Homelessness unspecified; R45.1 Restlessness and agitation; F17.210 Nicotine dependence, cigarettes, uncomplicated; Z78.1 Physical restraint status; Z79.899 Other long term (current) drug therapy
CPT/HCPCS: 80048; 80307; 82077; 85025; 87811; 96372; 99285; J3486

== ENCOUNTER 2023-05-29 12:44 | Emergency (ER) | payer MEDICAID, SELFPAY ==
[2023-05-29 12:44] VITALS: BP 162/106; PULSE 82; RESP 18; TEMP 36.2; O2SAT 100; BMI 20.9
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
--- NOTE | 2023-05-29 13:51 | ED.RN ---
PT REQUESTING TO LEAVE HOSPITAL TO SMOKE. RN HAS EXPLAINED TO PT HE CANNOT LEAVE AND THERE IS NO USE OF TOBACCO PRODUCTS ON HOSPITAL PROPERTY. MANJIT MARIN AND KYLIE CHARGE NURSE NOTIFIED
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
[2023-05-29 14:14] LABS: Absolute Lymphocyte Count 1.66 X10^3/uL (0.83-4.51); Absolute Neutrophil Count 4.6 X10^3/uL (2.0-7.7); Basophil# 0.07 X10^3/uL; Eosinophil# 0.18 X10^3/uL; Eosinophils% 2.5 % (0-5); Hematocrit 47.1 % (40-54); Hemoglobin 16.3 g/dL (13.0-16.5); Lymphocyte # 1.66 X10^3/ul (0.83-4.51); Lymphocyte % 23.4 % (19-41); Mean Corp Hgb Conc 34.6 g/dL (32-36); Mean Corpuscular Hgb 30.5 pg (27.0-32.0); Mean Platelet Vol. 9.3 fl (6.2-12.0); Monocyte% 7.1 % (0-10); NRBC Flagged by Analyzer 0 % (0-5); Neutrophil # 4.64 X10^3/uL (2.7-7.7); Neutrophil % 65.6 % (47-70); Platelet Count 220 K/mm3 (150-450); RBC Distribution Width CV 11.6 % (11.6-14.6); RBC Distribution Width SD 37.2 fl (35.1-43.9); Red Blood Count 5.35 M/mm3 (4.6-6.2); White Blood Count 7.1 K/mm3 (4.4-11.0)
[2023-05-29 14:28] LABS: Anion Gap 3 (5-15); BUN 10 mg/dL (7-18); BUN/Creat Ratio 10.5 RATIO (10-20); Calcium,Total 9.5 mg/dL (8.5-10.1); Chloride 106 mmol/L (98-107); Creatinine, Serum 0.95 mg/dL (0.70-1.30); EST Glomerular Filtration Rate 103 mL/min (>60); Est Glom Filt Rate - Afr Amer 125 mL/min (>60); Estimated Creatinine Clearance 118.21 ml/min; Glucose 99 mg/dL (74-106); Potassium 3.9 mmol/L (3.5-5.1); Sodium Level 139 mmol/L (136-145)
[2023-05-29 15:05] LABS: Acetaminophen (Tylenol) Level < 2.0 ug/mL (10.0-30.0); Alcohol, Blood (Medical)-Serum < 3.0 mg/dL; Salicylate < 1.7 mg/dL (2.8-20.0)
--- OUTSIDE RECORDS SUMMARY | 2023-05-29 15:37 | XMS RPT_ITS | CCD ---
Author Name Unknown Address [address] [place] [address] Organization [facility] Care Team Providers Care Survey Crew Chief Name Role Phone BRUNILDA TOMPKINS Unavailable Unavailable BRUNILDA TOMPKINS Unavailable Unavailable MONICA PHOENIX Unavailable Unavailable PHYSICIAN, NONE Primary Care Unavailable CLIFTON GRANGER Attending Unavailable [facility] Referring Ignacio lang Unavailable Primary Care Provider UnavailOral Liu Unavailable Anastasiia Pedroza Unavailable Destinee Mendosa Unavailable David Gonzalez Unavailable IHEONUNEHAYLEY CHIZITE Admitting Unavailable IHEONDEMETRIOU CHIZITE Attending Unavailable IHMELISSA QUEZADAZITE Primary Care Unavailable NO, DOCTOR ON Consulting Unavailable Medications Completed/Discontinued Medications Medication Drug Class(es) Dates Sig (Normalized) Sig (Original) ARIPiprazole 10 mg oral tablet (20 sources) Atypical Antipsychotic Start: 09-07-2021 End: 12-26-2021 Problems Active Problems Problem Classification Problem Date Documented Date Episodic/Chronic Schizophrenia and other psychotic disorders (20 sources) Schizophrenia; Translations: [Schizophrenia, unspecified] Onset: 08-21-2021 Chronic Substance-related disorders (1 source) Methamphetamine abuse; Translations: [Other stimulant abuse, uncomplicated] Chronic Past or Other Problems Problem Classification Problem Date Documented Da te Episodic/Chronic Unclassified (1 source) Encounter for other general examination / Z00.8(ICD-10) Onset: 03-12-2018 Results Test Name Value Interpretation Reference Range Facil ity Vital Signs Date Time Vital Sign Value Performing Clinician Facility 10-11-2021 13:02-0400 Body height 182.88 cm Oral Shin [facility] 10-11-2021 13:02-0400 Body mass index (BMI) [Ratio] 21.16 kg/m2 [facility] 10-11-2021 13:02-0400 Body weight 70.76 kg Oral [facility] 10-11-2021 13:02-0400 Diastolic blood pressure 82 mm[Hg] [facility] 10-11-2021 13:02-0400 Heart rate 84 /min Oral Aleida [facility] 10-11-2021 13:02-0400 Systolic blood pressure 131 mm[Hg] Oral Aleida [facility] 09-27-2021 16:50-0400 Body height 182.88 cm Oral Aleida [facility] 09-27-2021 16:50-0400 Body mass index (BMI) [Ratio] 21.16 kg/m2 Oral Aleida [facility] 09-27-2021 16:50-0400 Body weight 70.76 kg Oral Aleida [facility] 09-27-2021 16:03-0400 Body height 182.88 cm Oral Aleida [facility] 09-27-2021 16:03-0400 Body mass index (BMI) [Ratio] 21.16 kg/m2 Oral Aleida [facility] 09-27-2021 16:03-0400 Body weight 70.76 kg Oral Aleida [facility] 09-27-2021 16:03-0400 Diastolic blood pressure 57 mm[Hg] Oral Aleida [facility] 09-27-2021 16:03-0400 Heart rate 79 /min [facility]-27-2021 16:03-0400 Systolic blood pressure 99 mm[Hg] [facility] 09-07-2021 09:46-0400 Body height 182.88 cm Oral Aleida [facility] 09-07-2021 09:46-0400 Body mass index (BMI) [Ratio] 22.38 kg/m2 [facility] 09-07-2021 09:46-0400 Body weight 74.84 kg [facility] 09-07-2021 09:30-0400 Body height 182.88 cm Oral Aleida [facility] 09-07-2021 09:30-0400 Body mass index (BMI) [Ratio] 22.38 kg/m2 Oral Aleida [facility] 09-07-2021 09:30-0400 Body weight 74.84 kg Oral [facility] 09-07-2021 09:30-0400 Diastolic blood pressure 74 mm[Hg] Oral Aleida [facility] 09-07-2021 09:30-0400 Heart rate 57 /min Oral [facility]ida [facility] 09-07-2021 09:30-0400 Systolic blood pressure 114 mm[Hg] [facility] 09-05-2021 15:37-0400 Body height 182.88 cm Oral Aleida [facility] 09-05-2021 15:37-0400 Body mass index (BMI) [Ratio] 21.77 kg/m2 Oral Shin [facility] 09-05-2021 15:37-0400 Body weight 72.8 kg Oral Shin [facility] 09-05-2021 15:37-0400 Diastolic blood pressure 76 mm[Hg] Oral Shin [facility] 09-05-2021 15:37-0400 Heart rate 70 /min Oral Sihn [facility] 09-05-2021 15:37-0400 Systolic blood pressure 126 mm[Hg] Oral Shin [facility] 07-13-2021 15:39-0500 Diastolic blood pressure 76 mm[Hg] Stan Waters MD Work Phone: [facility] 07-13-2021 15:39-0500 Heart rate 82 /min Stan Waters MD Work Phone: [facility] 07-13-2021 15:39-0500 Respiratory rate 16 /min Stan Waters MD Work Phone: [facility] 07-13-2021 15:39-0500 SaO2% (BldA) [Mass fraction] 97 % Stan Waters MD Work Phone: [facility] 07-13-2021 15:39-0500 Systolic blood pressure 128 mm[Hg] Stan Waters MD Work Phone: [facility] 07-13-2021 10:43-0500 Body temperature 98.2 [degF] Stan Waters MD Work Phone: [facility] 07-12-2021 20:48-0500 Body height 182.9 cm Stan Waters MD Work Phone: [facility] 07-12-2021 20:48-0500 Body mass index (BMI) [Ratio] 20.89 kg/m2 Stan Waters MD Work Phone: [facility] 07-12-2021 20:48-0500 Body weight 69.85 kg Stan Waters MD Work Phone: [facility] Encounters Encounter Date Encounter Type Care Provider Facility Start: 11-26-2021 End: 11-26-2021 Emergency department patient visit BA TONGEONUNEKWU [facility] Start: 09-27-2021 Office outpatient vi sit 25 minutes Oral Aleida [facility] [address] Start: 09-07-2021 Office outpatient vi sit 25 minutes Oral Aleida [facility] [address] Start: 07-12-2021 End: 07-13-2021 Emergency department patient visit Stan Waters MD Work Phone: [facility] Emergency Dept Procedures Date Procedure Procedure Detail Performing Clinician Start: 01-22-2022 Ther behav svc, per 15 min Oral Aleida Start: 01-11-2022 Ther behav svc, per 15 min Oral Aelida Start: 12-18-2021 Ther behav svc, per 15 min Oral Aleida Start: 12-15-2021 Ther behav svc, per 15 min Oral Aleida Start: 11-29-2021 Ther behav svc, per 15 min Oral Aleida Start: 11-28-2021 Ther behav svc, per 15 min Oral Aleida Start: 11-26-2021 Urinalysis [facility] EONUNEKWU Plan of Treatment Date Care Activity Detail Author Start: 01-11-2021 Influenza vaccination Flu vaccine (# 1) [facility] Start: 2003 COVID-19 Vaccine (1) COVID-19 Vaccin e (1) [facility] Payers Date Payer Category Payer Self-pay 1998 Unknown [id number] 1998 Unknown [id number] Medicaid [id number] Social History Date Type Detail Facility Start: 07-12-2021 Tobacco smoking stat [facility] Smokes tobacco daily [facility] Work Phone: Start: 07-12-2021 Tobacco use and exposure Smokeless tobacco non-user [facility] Work Phone: Start: 07-12-2021 Alcohol intake Current drinke r of alcohol (finding) [facility] Work Phone: Start: 07-12-2021 History SDOH Alcohol Comment occasional [facility] Work Phone: Start: 2000 Sex Assigned At Not on file [facility] Work Phone: Exposure to SARS-CoV -2 (event) Not sure [facility] Work Phone: Start: 1998 Sex Assigned At [facility] [address] Former Smoker [facility] [address] Medical Equipment Procedure Code Equipment Code Equipment Original Text Equi pment Identifier Dates Procedure Implant ([id number]) Consult note Note Date & Type Note Facility Consult note No Information to Report [facility] [address] Discharge summary Note Date & Type Note Facility Discharge summary No Information to Report [facility] [address] Evaluation note Note Date & Type Note Facility documented in this encounter [facility] Work Phone: Evaluation note Note Date & Type Note Facility Evaluation note No Information to Report [facility] [address] History and physical note Note Date & Type Note Facility History and physical note No Information to Report [facility] [address] Hospital Discharge instructions Attachments Note Date & Type Note Facility Hospital Discharge instructions The following attachments cannot be sent through Care Everywhere.Schizophrenia ([place])documented in this encounter [facility] Work Phone: Procedure note Note Date & Type Note Facility Procedure note No Information to Report [facility] [address] Progress note Note Date & Type Note Facility Progress note No Information to Report [facility] [address] Summary Purpose Family History No Family History Records FoundNo Family History Records FoundNo Family History Records FoundNo Family History Records FoundNo Family History Records FoundNo Family History Records Found Advance Directives No Advanced Directives Records FoundNo Advanced Directives Records FoundNo Advanced Directives Records FoundNo Advanced Directives Records FoundNo Advanced Directives Records FoundNo Advanced Directives Records Found Additional Source Comments (unrecognized sect ion and content) No Status Records FoundNo Status Records FoundNo Status Records FoundNo Status Records FoundNo Status Records FoundNo Status Records Found INFORMATION SOURCE (unrecogn ized section and content) DATE CREATED AUTHOR AUTHOR'S ORGANIZ ATION 06/30/2018 [facility] ([place] DATE CREATED AUTHOR AUTHOR'S ORGANIZ ATION 11/04/2018 [facility] DATE CREATED AUTHOR AUTHOR'S ORGANIZ ATION 07/18/2021 [facility] DATE CREATED AUTHOR AUTHOR'S ORGANIZ ATION 07/21/2021 [facility] DATE CREATED AUTHOR AUTHOR'S ORGANIZ ATION 12/03/2021 [facility] Reason for Visit (unrecogniz ed section and content) FOR RECORDS PERTAINING TO PATIENTS WHO ARE OR HAVE BEEN ENROLLED IN A CHEMICAL DEPENDENCY/SUBSTANCEABUSE PROGRAM, SOME INFORMATION MAY BE OMITTED. This clinical summary was aggregated from multiple sources. Caution should be exercised in using it in the provision of clinical care. This summary normalizes information from multiple sources, and as a consequence, information in this document may materially change the coding, format and clinical context of patient data. In addition, data may be omitted in some cases. CLINICAL DECISIONS SHOULD BE BASED ON THE PRIMARY CLINICAL RECORDS. [facility] provides no warranty or guarantee of the accuracy or completeness of information in this document.
[2023-05-29 16:10] LABS: Amphetamine Urine VISTA POSITIVE (<1000 ng/mL); Barbiturate Urine VISTA NEGATIVE (< 200 ng/mL); Benzodiazepine Urine VISTA NEGATIVE (< 200 ng/mL); Cocaine Urine VISTA NEGATIVE (< 300 ng/mL); Ecstacy Urine VISTA POSITIVE (< 500 ng/mL); Methadone Urine VISTA NEGATIVE (< 300 ng/mL); PCP Urine VISTA NEGATIVE (< 25 ng/mL); THC Urine VISTA POSITIVE (< 50 ng/mL); Vista UDS pH Range 7
[2023-05-29 17:04] VITALS: BP 126/77; PULSE 98; RESP 16; TEMP 36.9; O2SAT 100
[2023-05-29 17:05] VITALS: BP 136/76; PULSE 61; RESP 13; O2SAT 99
[2023-05-29 21:05] VITALS: PULSE 98; RESP 12; TEMP 36.5; O2SAT 99
[2023-05-30] MEDS: traZODone 50 MG Tablet PO (00:41)
[2023-05-30 01:00] VITALS: BP 145/79; PULSE 97; RESP 16; TEMP 36.7; O2SAT 99
--- NOTE | 2023-05-30 02:03 | ED.RN ---
report given to receiving nurse at [facility]
[2023-05-30 05:00] VITALS: BP 104/64; PULSE 94; RESP 15; TEMP 36.2; O2SAT 97
--- NOTE | 2023-05-30 07:08 | ED.RN ---
[facility] CALLED AND MOVED THE TRANSPORTATION ETA UP TO 0830.
--- NOTE | 2023-05-30 08:50 | ED.RN ---
CALLED [facility] FOR AN UPDATED ETA, DISPATCH SAID THE [facility] IS 2 MINUTES AWAY.
[2023-05-30 09:00] VITALS: BP 109/71; PULSE 89; RESP 16; O2SAT 98
== END 2023-05-30 09:23 ==
PROVIDERS: Emergency Provider Emergency Medicine; Visit Provider Emergency Medicine
DX: F22 Delusional disorders (principal); F25.9 Schizoaffective disorder, unspecified; F31.9 Bipolar disorder, unspecified; R41.0 Disorientation, unspecified; F17.210 Nicotine dependence, cigarettes, uncomplicated; F12.10 Cannabis abuse, uncomplicated
CPT/HCPCS: 80048; 80307; 80320; 80329; 85025; 99283; G0480

== ENCOUNTER 2023-09-13 12:41 | Emergency (ER) | payer MEDICAID, SELFPAY ==
[2023-09-13 12:42] VITALS: BP 122/71; PULSE 105; RESP 19; TEMP 35.8; O2SAT 96; BMI 22.0
--- NOTE | 2023-09-13 12:53 | ED.RN ---
ANDREWS [facility] CALLED TO GIVE CONSENT FOR TREATMENT FOR PT THEY HAVE [employer]. HER CALL BACK # IS [phone]. SHE GAVE VERBAL CONSENT FOR TREATMENT OVER THE PHONE TO MYSELF AND MARY PATTEN
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
[2023-09-13 13:36] LABS: Absolute Lymphocyte Count 2.09 X10^3/uL (0.83-4.51); Absolute Neutrophil Count 5.3 X10^3/uL (2.0-7.7); Basophil# 0.06 X10^3/uL; Basophil% 0.7 % (0-1); Eosinophil# 0.28 X10^3/uL; Eosinophils% 3.4 % (0-5); Hematocrit 43.2 % (40-54); Hemoglobin 15.1 g/dL (13.0-16.5); Lymphocyte # 2.09 X10^3/ul (0.83-4.51); Lymphocyte % 25.1 % (19-41); Mean Corpuscular Hgb 30.3 pg (27.0-32.0); Mean Corpuscular Volume 86.6 fL (80-94); Mean Platelet Vol. 9.4 fl (6.2-12.0); Monocyte# 0.62 X10^3/uL; Monocyte% 7.4 % (0-10); NRBC Flagged by Analyzer 0 % (0-5); Neutrophil # 5.26 X10^3/uL (2.7-7.7); Neutrophil % 63.2 % (47-70); Platelet Count 205 K/mm3 (150-450); RBC Distribution Width CV 11.9 % (11.6-14.6); RBC Distribution Width SD 37.7 fl (35.1-43.9); Red Blood Count 4.99 M/mm3 (4.6-6.2); White Blood Count 8.3 K/mm3 (4.4-11.0)
[2023-09-13 13:49] LABS: Anion Gap 5 (5-15); BUN 14 mg/dL (7-18); BUN/Creat Ratio 16.8 RATIO (10-20); Calcium,Total 9.4 mg/dL (8.5-10.1); Chloride 107 mmol/L (98-107); Creatinine, Serum 0.83 mg/dL (0.70-1.30); EST Glomerular Filtration Rate 120 mL/min (>60); Est Glom Filt Rate - Afr Amer 145 mL/min (>60); Estimated Creatinine Clearance 141.67 ml/min; Glucose 97 mg/dL (74-106); Potassium 3.4 mmol/L (3.5-5.1); Sodium Level 138 mmol/L (136-145)
[2023-09-13 14:42] VITALS: BP 138/72; PULSE 88; RESP 16; TEMP 36.3; O2SAT 97
[2023-09-13 14:53] LABS: Alcohol, Blood (Medical)-Serum < 3.0 mg/dL
[2023-09-13 14:53] LABS: Amphetamine Urine VISTA POSITIVE (<1000 ng/mL); Barbiturate Urine VISTA NEGATIVE (< 200 ng/mL); Benzodiazepine Urine VISTA NEGATIVE (< 200 ng/mL); Cocaine Urine VISTA NEGATIVE (< 300 ng/mL); Ecstacy Urine VISTA POSITIVE (< 500 ng/mL); Methadone Urine VISTA NEGATIVE (< 300 ng/mL); PCP Urine VISTA NEGATIVE (< 25 ng/mL); THC Urine VISTA POSITIVE (< 50 ng/mL); Vista UDS pH Range 6
[2023-09-13 16:31] VITALS: BP 124/79; PULSE 81; RESP 16; TEMP 36.7; O2SAT 97
[2023-09-13 18:19] VITALS: BP 139/88; PULSE 72; RESP 16; TEMP 36.7; O2SAT 97
[2023-09-13 20:00] VITALS: BP 94/73; PULSE 72; RESP 16; O2SAT 93
[2023-09-13 22:04] VITALS: BP 94/73; PULSE 72; RESP 16; TEMP 36.8; O2SAT 95
== END 2023-09-13 22:11 ==
LOC: ED 13:11
PROVIDERS: Physician Assistant; Emergency Provider Emergency Medicine; Visit Provider Emergency Medicine
DX: F23 Brief psychotic disorder (principal); F25.9 Schizoaffective disorder, unspecified; F17.210 Nicotine dependence, cigarettes, uncomplicated; F32.A Depression, unspecified; Z59.00 Homelessness unspecified; H61.21 Impacted cerumen, right ear
CPT/HCPCS: 36415; 80048; 80307; 80320; 85025; 99285; G0480

== ENCOUNTER 2024-08-18 10:11 | Emergency (ER) | payer MEDICAID, SELFPAY ==
[2024-08-18 10:12] VITALS: BP 130/77; PULSE 82; RESP 14; TEMP 35.6; O2SAT 98; BMI 28.5
--- NOTE | 2024-08-18 10:22 | EDS_ITS ---
HPI HPI - Psych History of Present Illness Chief Complaint: Mental Health Informant: patient Onset/Context/Timing Onset: Today Narrative Narrative: Patient presents to the emergency department for medical clearance. Patient states he is only here for blood work. Patient denies any suicidal homicidal ideations. Patient denies any visual or auditory hallucinations. Patient has a court order to be medically cleared for psychiatric placement at [facility]. Patient denies any symptoms. [facility] Medical History Methamphetamine abuse Bipolar 1 disorder Schizo-affective schizophrenia Home Medications ?Medication ?Instructions ?Recorded ?Last Taken ?Type NK 02/26/21 Unknown History NK 06/14/21 Unknown History trazodone 50 mg tablet 50 mg PO QHS #30 tabs Unknown Rx Allergy/AdvReac Type Severity Reaction Status Date / Time No Known Allergies Allergy Verified 08/18/24 10:12 Surgical History no surgical history no surgical history Social History household members: none housing: homeless Smoking Status: Current every day smoker tobacco type: cigarettes substance use type: marijuana ROS ROS ED Constitutional Constitutional ED: Denies chills or fever(s) Eyes Eyes: Denies blurry vision or change in vision ENT ENT ED: Reports sore throat; Denies rhinorrhea Cardiovascular Cardiovascular: Denies chest pain or palpitations Respiratory/Chest Respiratory/Chest: Denies cough or dyspnea Gastrointestinal Gastrointestinal: Denies nausea or vomiting Genitourinary Genitourinary ED: Denies dysuria or hematuria Musculoskeletal Musculoskeletal: Denies back pain or neck pain Integumentary Denies abscess or rash Neurologic Neurologic: Denies headache(s) or weakness Allergic/Immunologic Allergic/Immunologic ED: Denies mouth swelling or urticaria EXAM Physical Exam Const Vital Signs: 08/18/24 10:12 Temperature 96.1 F L Temperature Source Temporal Pulse Rate 82 Respiratory Rate 14 Blood Pressure 130/77 H Blood Pressure Mean 94 Pulse Ox 98 Oxygen Delivery Method Room Air Positive well nourished and well developed General Appearance ED: well developed and NAD HEENT Reports moist mucous membranes Neck supple and no JVD Resp normal respiratory effort and clear to auscultation bilaterally Cardio Rate: regular rate Rhythm: regular rhythm GI non-tender and non-distended Palpation: soft Extremity normal to inspection General Extremety ED: Negative for edema or tenderness General Extremity: Negative for edema Neuro CN's II-XII intact bilaterally and no sensory deficits noted Racheal Coma Scale: document GCS findings Spontaneous Obeys Commands Oriented 15 Sensorium / Orientation: alert Motor Exam: strength 5/5 throughout Psych cooperative Attitude: calm Activity / Motor Behavior: appropriate eye contact Speech: normal speech Mood & Affect: elevated mood MDM MDM MDM Narrative Medical decision making narrative: Medical screening labs will be obtained. CBC will be obtained to assess for leukocytosis and anemia. Basic metabolic profile will be obtained to assess for electrolyte abnormality and renal function. Serum alcohol level will be obtained to assess for alcohol intoxication. Urine drug screen will be obtained to assess for substance abuse. Lab Data Attestation: I reviewed the patient's lab results. Lab results narrative: CBC was reviewed and was within normal limits. Basic metabolic profile was reviewed and was within normal limits. Serum alcohol level was reviewed and was less than 10.1. Urine drug screen was reviewed and was positive for benzodiazepines and cannabinoids. Labs: Laboratory Results - last 24 hr 08/18/24 11:15 WBC 6.4 RBC 5.48 Hgb 17.2 H Hct 48.0 MCV 87.6 MCH 31.4 MCHC 35.8 RDW Std Deviation 38.4 RDW Coeff of Geremias 11.9 Plt Count 180 MPV 9.3 Immature Gran % (Auto) 0.800 Neut % (Auto) 49.7 Lymph % (Auto) 34.0 [place] % (Auto) 8.3 Eos % (Auto) 5.8 H Baso % (Auto) 1.4 H Absolute Neuts (auto) 3.2 Absolute Lymphs (auto) 2.17 Nucleated RBC % 0 Sodium 138 Potassium 4.0 Chloride 104 Carbon Dioxide 22.7 Anion Gap 11 BUN 16 Creatinine 0.99 Estim Creat Clear Calc 131.62 Est GFR (MDRD) Non-Af 108 BUN/Creatinine Ratio 15.8 Glucose 95 Calcium 9.4 Urine Opiates Screen NEGATIVE U Buprenorphine Qual NEGATIVE Ur Oxycodone Screen NEGATIVE Urine Methadone Screen NEGATIVE Urine Fentanyl Screen NEGATIVE Ur Barbiturates Screen NEGATIVE Ur Phencyclidine Scrn NEGATIVE Ur Amphetamines Screen NEGATIVE U Benzodiazepines Scrn PRESUMPTIVE POSITIVE Urine Cocaine Screen NEGATIVE U Cannabinoids Screen PRESUMPTIVE POSITIVE Ethyl Alcohol < 10.1 EKG Initial EKG: Attestation: I personally reviewed and interpreted this EKG as follows: Interpretation: Sinus Rhythm (93), No Acute Injury Pattern and RBBB (Incomplete) Comments: EKG was obtained. On my independent interpretation, it showed a normal sinus rhythm with a rate of 93. [place] interval, QRS interval, and QTc intervals were all normal. Vickery was normal. There is an incomplete right bundle branch block pattern noted. There are no acute ST or T wave changes. Prior EKG tracings: available for review Prior: Unchanged (06/14/2021) Treatment and Re-Evaluation Narrative: Patient is medically cleared for psychiatric placement. Patient's bed at [facility] is no longer available at this time. [facility] be [facility] to [facility]. Caregiver was instructed to return if worse in any way. Caregiver understood and was agreeable with the plan. All questions were answered. Discharge Plan Triage Chief Complaint: Mental Health ED Provider: Saran Marquis Dx/Rx/DC Orders Clinical Impression: Schizoaffective disorder Instructions: ED Schizoaffective Disorder Prescriptions: No Action NK NK trazodone 50 mg tablet 50 mg PO QHS Qty: 30 0RF Primary Care Provider: SHANIA WATERS Referrals: Care Physician,No Primary [Non-Staff] - SHANIA WATERS, TELECOMMUNICATIONS OFFICER-C [Primary Care Provider] - 5-7 Days Print Language: Welsh Disposition Disposition: Home, Self Care Discharge Location: [facility]
[2024-08-18 11:34] LABS: Absolute Lymphocyte Count 2.17 X10^3/uL (0.83-4.51); Absolute Neutrophil Count 3.2 X10^3/uL (2.0-7.7); Basophil# 0.09 X10^3/uL; Basophil% 1.4 % (0-1); Eosinophil# 0.37 X10^3/uL; Eosinophils% 5.8 % (0-5); Hemoglobin 17.2 g/dL (13.0-16.5); Lymphocyte # 2.17 X10^3/ul (0.83-4.51); Mean Corp Hgb Conc 35.8 g/dL (32-36); Mean Corpuscular Hgb 31.4 pg (27.0-32.0); Mean Corpuscular Volume 87.6 fL (80-94); Mean Platelet Vol. 9.3 fl (6.2-12.0); Monocyte# 0.53 X10^3/uL; Monocyte% 8.3 % (0-10); NRBC Flagged by Analyzer 0 % (0-5); Neutrophil # 3.17 X10^3/uL (2.7-7.7); Neutrophil % 49.7 % (47-70); Platelet Count 180 K/mm3 (150-450); RBC Distribution Width CV 11.9 % (11.6-14.6); RBC Distribution Width SD 38.4 fl (35.1-43.9); Red Blood Count 5.48 M/mm3 (4.6-6.2); White Blood Count 6.4 K/mm3 (4.4-11.0)
[2024-08-18 11:59] LABS: Alcohol, Blood (Medical)-Serum < 10.1 mg/dL (<=10.0)
[2024-08-18 12:00] LABS: Anion Gap 11 (5-15); BUN 16 mg/dL (4-19); BUN/Creat Ratio 15.8 RATIO (10-20); Calcium,Total 9.4 mg/dL (7.6-11.0); Carbon Dioxide 22.7 mmol/L (21.0-32.0); Chloride 104 mmol/L (98-108); Creatinine, Serum 0.99 mg/dL (0.70-1.20); EST Glomerular Filtration Rate 108 (>60); Estimated Creatinine Clearance 131.62 ml/min (50-250); Glucose 95 mg/dL (70-99); Sodium Level 138 mmol/L (133-145)
[2024-08-18 12:28] LABS: Amphetamine Urine NEGATIVE (<1000 ng/mL); Barbiturate Urine NEGATIVE (< 200 ng/mL); Benzodiazepine Urine PRESUMPTIVE POSITIVE (< 200 ng/mL); Buprenorphine Urine NEGATIVE (< 200 ng/mL); Cocaine Urine NEGATIVE (< 300 ng/mL); Fentanyl, Urine NEGATIVE; Methadone Urine NEGATIVE (< 300 ng/mL); Opiates Urine NEGATIVE (< 300 ng/mL); Oxycodone, Urine NEGATIVE (< 100 ng/mL); PCP Urine NEGATIVE (< 25 ng/mL); THC Urine PRESUMPTIVE POSITIVE (< 50 ng/mL)
--- NOTE | 2024-08-18 13:22 | EKG12_ITS ---
Test Reason : PLACEMENT Blood Pressure : */* mmHG Vent. Rate : 93 BPM Atrial Rate : 93 BPM P-R Int : 134 ms QRS Dur : 94 ms QT Int : 346 ms P-R-T Axes : 71 76 58 degrees QTcB Int : 430 ms Normal sinus rhythm Incomplete right bundle branch block Borderline ECG Confirmed by JANAK SANCHEZ, ISHAN ([id number]), school photograph editor LAINE HENAO ([id number]) on 08/20/2024 8:28:47 AM Referred By: Confirmed By: ISHAN BRICENO MD
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
== END 2024-08-18 13:57 | disposition home or self-care (01) ==
PROVIDERS: Emergency Provider Emergency Medicine; PCP Nurse Practitioner Family; Visit Provider Emergency Medicine
DX: F25.9 Schizoaffective disorder, unspecified (principal); F31.9 Bipolar disorder, unspecified; F17.210 Nicotine dependence, cigarettes, uncomplicated; Z59.00 Homelessness unspecified
CPT/HCPCS: 36415; 80048; 80307; 82077; 85025; 93005; 99282